=== PATIENT | male | born 1995 | race Caucasian/White ===

== ENCOUNTER 2017-02-06 11:21 | Emergency (ER) | payer OTHER ==
[~2017-02-06] VITALS: Ht 177.8 cm; Wt 75.0 kg
[~2017-02-06 11:21] MED LIST: NOCURR
[2017-02-06] MEDS ORDERED: HYDROCODONE/ACETAMINOPHEN 5-325 MG TABLET PO ONE (13:15)
[2017-02-06] MEDS ORDERED: LIDOCAINE HCL BUFFERED 1% W/EPI 1:100,000 20 ML VIAL INJ ONE (13:15)
[2017-02-06] MEDS ORDERED: ONDANSETRON HCL 4 MG TABLET PO ONE (13:15)
[2017-02-06] MEDS ORDERED: POVIDONE-IODINE 10% 120 ML SOLUTION TP ONE (14:00)
[2017-02-06 14:55] VITALS: BP 127/71
== END 2017-02-06 14:59 | disposition home or self-care (01) ==
LOC: EMS 11:22
DX: L05.01 Pilonidal cyst with abscess (principal)
CPT/HCPCS: 10080; 99284; J3490; Q0162

== ENCOUNTER 2017-02-09 09:31 | Emergency (ER) | payer OTHER ==
[~2017-02-09] VITALS: Ht 177.8 cm; Wt 75.0 kg
[2017-02-09 11:14] VITALS: BP 125/89
== END 2017-02-09 11:14 | disposition home or self-care (01) ==
LOC: EMS 09:32
DX: Z48.00 Encounter for change or removal of nonsurgical wound dressing (principal); F17.210 Nicotine dependence, cigarettes, uncomplicated
CPT/HCPCS: 99282

== ENCOUNTER 2017-02-12 10:20 | Emergency (ER) | payer OTHER ==
[~2017-02-12] VITALS: Ht 177.8 cm; Wt 75.0 kg
[2017-02-12] MEDS ORDERED: POVIDONE-IODINE 10% 15 ML SOLUTION UD TP ONE (11:30)
[2017-02-12 12:35] VITALS: BP 121/82
[2017-02-12] MEDS ORDERED: BACITRACIN 0.9 GM PACKET OINTMENT TP ONE (12:45)
== END 2017-02-12 13:01 | disposition home or self-care (01) ==
LOC: EMS 10:22
DX: Z48.01 Encounter for change or removal of surgical wound dressing (principal); F17.210 Nicotine dependence, cigarettes, uncomplicated
CPT/HCPCS: 99283

== ENCOUNTER 2017-11-12 14:28 | Emergency (ER) | payer MEDICAID, OTHER ==
[~2017-11-12] VITALS: Ht 180.3 cm; Wt 70.5 kg
[2017-11-12 16:10] VITALS: BP 112/69
== END 2017-11-12 16:45 | disposition home or self-care (01) ==
LOC: EMS 14:29
DX: S00.93XA Contusion of unspecified part of head, initial encounter (principal); F12.10 Cannabis abuse, uncomplicated; F17.210 Nicotine dependence, cigarettes, uncomplicated; F15.10 Other stimulant abuse, uncomplicated; W50.0XXA Accidental hit or strike by another person, initial encounter; Y93.89 Activity, other specified; Y92.89 Other specified places as the place of occurrence of the external cause; Y99.8 Other external cause status
CPT/HCPCS: 70450; 99284

== ENCOUNTER 2017-11-13 20:33 | Emergency (ER) | payer MEDICAID ==
[~2017-11-13] VITALS: Ht 180.3 cm; Wt 72.0 kg
[2017-11-13 20:35] VITALS: BP 124/62
[2017-11-13] MEDS ORDERED: LORazepam 1 MG TABLET PO ONE (21:45)
== END 2017-11-13 22:25 | disposition home or self-care (01) ==
LOC: EMS 20:34
DX: F41.9 Anxiety disorder, unspecified (principal); F12.10 Cannabis abuse, uncomplicated; F15.10 Other stimulant abuse, uncomplicated; F17.210 Nicotine dependence, cigarettes, uncomplicated
CPT/HCPCS: 99284

== ENCOUNTER 2017-12-15 13:07 | Inpatient (IN) | payer MEDICAID ==
[~2017-12-15] VITALS: Ht 170.2 cm; Wt 66.3 kg
[2017-12-15] MEDS ORDERED: LORazepam 2 MG TABLET PO ONE (14:00)
[2017-12-15] MEDS ORDERED: HALOPERIDOL 5 MG TABLET PO ONE (14:00)
[2017-12-15] MEDS ORDERED: DiphenhydrAMINE HCL 50 MG/ML VIAL IM ONE (14:30)
[2017-12-15] MEDS ORDERED: LORazepam 2 MG/ML VIAL IM ONE (14:30)
[2017-12-15] MEDS ORDERED: HALOPERIDOL LACTATE 5 MG/ML VIAL IM ONE (14:30)
[2017-12-15 14:44] LABS: BASOPHILS % (AUTO) 0.8 % (0.0-2.0); EOSINOPHILS % (AUTO) 2.9 % (1.0-6.0); HEMATOCRIT 50.1 % (41-53); HEMOGLOBIN 17.1 g/dL (13.5-17.5); LYMPHOCYTES # (AUTO) 1.7 K/uL (1.0-4.8); LYMPHOCYTES % (AUTO) 18.4 % (22.0-44.0); MEAN CORPUSCULAR HEMOGLOBIN 31.5 pg (26.0-34.0); MEAN CORPUSCULAR HGB CONC 34.2 G/dL (31.0-37.0); MEAN CORPUSCULAR VOLUME 92 fL (80-100); MONOCYTES # (AUTO) 0.7 K/uL (0.1-1.0); MONOCYTES % (AUTO) 7.5 % (2.0-9.0); NEUTROPHILS # (AUTO) 6.5 K/uL (1.8-7.7); NEUTROPHILS % (AUTO) 70.4 % (40.0-70.0); PLATELET COUNT (AUTO) 264 K/uL (150-450); RED BLOOD CELL COUNT(AUTO) 5.45 MIL/uL (4.50-5.90); RED CELL DISTRIBUTION WIDTH 12.9 % (11.5-14.5)
[2017-12-15 14:51] LABS: AMPHET/METH SCREEN,URINE POSITIVE (NEGATIVE); BARBITURATE SCREEN, URINE NEGATIVE (NEGATIVE); BENZODIAZEPINES SCREEN,URINE NEGATIVE (NEGATIVE); CANNABINOID SCREEN,URINE POSITIVE (NEGATIVE); COCAINE SCREEN,URINE NEGATIVE (NEGATIVE); METHADONE SCREEN, URINE NEGATIVE (NEGATIVE); OPIATE SCREEN,URINE NEGATIVE (NEGATIVE)
[2017-12-15 15:04] LABS: PHENCYCLIDINE SCREEN,URINE NEGATIVE (NEGATIVE)
[2017-12-15 15:08] LABS: ANION GAP 9 mmol/L (8-16); CALCIUM, TOTAL 8.9 mg/dL (8.8-10.5); CARBON DIOXIDE 27 mmol/L (22-29); CHLORIDE 103 mmol/L (98-107); GLOMERULAR FILTR. RATE CALC > 60 mL/min (>60); GLUCOSE,RANDOM 69 mg/dL (70-110); POTASSIUM 3.6 mmol/L (3.5-5.1); SODIUM SERUM 139 mmol/L (136-145); UREA NITROGEN, BLOOD 10 mg/dL (7-18)
[2017-12-15 15:15] LABS: ALANINE AMINOTRANSFERASE 34 U/L (12-78); ALBUMIN 4.1 g/dL (3.4-5.0); ALKALINE PHOSPHATASE 89 U/L (46-116); ASPARTATE AMINOTRANSFERASE 30 U/L (15-37); BILIRUBIN,TOTAL 0.4 mg/dL (0.1-1.0); TOTAL PROTEIN, SERUM 7.3 g/dL (6.4-8.2)
[2017-12-15 15:29] LABS: CHOL/HDL RATIO 2.1 (4.2-7.3); CHOLESTEROL 124 mg/dL (131-200); HDL CHOLESTEROL 60 mg/dL (40-60); LDL CHOL (CALC.) 55 mg/dL (0-130); TRIGLYCERIDES 43 mg/dL (15-150)
[2017-12-16] MEDS: LORazepam 2 MG TABLET PO PRN (19:00)
[2017-12-16] MEDS: HALOPERIDOL 5 MG TABLET PO PRN (19:00)
[2017-12-17 08:05] VITALS: BP 132/76
[2017-12-17 16:39] VITALS: BP 115/68
[2017-12-17] MEDS: LORazepam 2 MG TABLET PO PRN (16:41)
[2017-12-17] MEDS: HALOPERIDOL 5 MG TABLET PO PRN (16:41)
[2017-12-17] MEDS ORDERED: OLANZapine 5 MG TABLET PO SCH (21:00)
[2017-12-18 08:24] VITALS: BP 112/57
[2017-12-18] MEDS: OLANZapine 5 MG TABLET PO SCH ×2 (11:49→20:20)
[2017-12-18] MEDS: FLUoxetine HCL 20 MG CAPSULE PO SCH (11:50)
[2017-12-18 17:02] VITALS: BP 103/65
[2017-12-18] MEDS: LORazepam 2 MG TABLET PO PRN (19:59)
[2017-12-19] MEDS: FLUoxetine HCL 20 MG CAPSULE PO SCH (09:11)
[2017-12-19] MEDS: OLANZapine 5 MG TABLET PO SCH ×2 (09:12→20:04)
[2017-12-19 10:08] VITALS: BP 102/65
[2017-12-19 16:42] VITALS: BP 112/59
[2017-12-19] MEDS: LORazepam 2 MG TABLET PO PRN (17:55)
[2017-12-20] MEDS: OLANZapine 5 MG TABLET PO SCH ×2 (09:15→20:09)
[2017-12-20] MEDS: FLUoxetine HCL 20 MG CAPSULE PO SCH (09:15)
[2017-12-20 10:50] VITALS: BP 123/64
[2017-12-20] MEDS: LORazepam 2 MG TABLET PO PRN (19:12)
[2017-12-20 19:19] VITALS: BP 101/69
[2017-12-20] MEDS: ZOLPIDEM TARTRATE 10 MG TABLET PO PRN (20:56)
[2017-12-21 03:20] VITALS: BP 120/71
[2017-12-21] MEDS: OLANZapine 5 MG TABLET PO SCH ×2 (08:23→20:45)
[2017-12-21] MEDS: FLUoxetine HCL 20 MG CAPSULE PO SCH (08:23)
[2017-12-21 08:34] VITALS: BP 122/69
[2017-12-21] MEDS: LORazepam 2 MG TABLET PO PRN ×2 (09:18→16:56)
[2017-12-21 20:11] VITALS: BP 118/73
[2017-12-21] MEDS: ZOLPIDEM TARTRATE 10 MG TABLET PO PRN (22:31)
[2017-12-22 02:36] VITALS: BP 112/76
[2017-12-22] MEDS: LORazepam 2 MG TABLET PO PRN ×2 (02:40→08:08)
[2017-12-22 08:00] VITALS: BP 130/85
[2017-12-22] MEDS: HALOPERIDOL 5 MG TABLET PO PRN (08:07)
[2017-12-22] MEDS: OLANZapine 5 MG TABLET PO SCH (08:08)
[2017-12-22] MEDS: FLUoxetine HCL 20 MG CAPSULE PO SCH (08:08)
[2017-12-22] MEDS ORDERED: FLUO-191 PO (13:08)
[2017-12-22] MEDS ORDERED: OLAN5TAB2 PO (13:09)
== END 2017-12-22 13:40 | disposition home or self-care (01) | DRG 751 ==
LOC: EMS 13:07 → UNDOADMIN 15:25 → 3EC 15:25 → 3EI 12-18 14:45
PROVIDERS: ADMIT Psychiatry & Neurology Child & Adolescent Psychiatry; ATTEND Psychiatry & Neurology Child & Adolescent Psychiatry
DX: F29 Unspecified psychosis not due to a substance or known physiological condition (principal); R45.851 Suicidal ideations; F20.9 Schizophrenia, unspecified; E16.2 Hypoglycemia, unspecified; F15.10 Other stimulant abuse, uncomplicated; F94.0 Selective mutism; F17.210 Nicotine dependence, cigarettes, uncomplicated; F12.10 Cannabis abuse, uncomplicated; Z79.899 Other long term (current) drug therapy; Z87.828 Personal history of other (healed) physical injury and trauma
CPT/HCPCS: 96372; 99285; G0480; J1200; J1630; J2060

== ENCOUNTER 2018-06-22 23:32 | Emergency (ER) | payer SELFPAY ==
[~2018-06-22] VITALS: Ht 180.3 cm; Wt 72.7 kg
[~2018-06-22 23:32] MED LIST changes: +FLUO-191 PO; -NOCURR; +OLAN5TAB2 PO
[2018-06-23] MEDS ORDERED: PERTUSS(ACELL),DIPH,TET VAC/PF 0.5 ML VIAL IM ONE (02:00)
[2018-06-23] MEDS ORDERED: BACITRACIN 0.9 GM PACKET OINTMENT TP ONE (02:00)
[2018-06-23 02:26] VITALS: BP 122/68
== END 2018-06-23 02:52 | disposition home or self-care (01) ==
LOC: EMS 23:32
DX: S61.411A Laceration without foreign body of right hand, initial encounter (principal); R46.89 Other symptoms and signs involving appearance and behavior; R45.4 Irritability and anger; F12.90 Cannabis use, unspecified, uncomplicated; F15.90 Other stimulant use, unspecified, uncomplicated; Z98.890 Other specified postprocedural states; Z79.899 Other long term (current) drug therapy; X99.9XXA Assault by unspecified sharp object, initial encounter; Y93.89 Activity, other specified; Y92.89 Other specified places as the place of occurrence of the external cause; Y99.8 Other external cause status
CPT/HCPCS: 90471; 90715

== ENCOUNTER 2018-08-14 20:12 | Emergency (ER) | payer SELFPAY ==
[~2018-08-14] VITALS: Ht 180.3 cm; Wt 72.7 kg
[2018-08-14 20:13] VITALS: BP 124/80
== END 2018-08-14 21:00 | disposition left against medical advice (07) ==
LOC: EMS 20:13
DX: F22 Delusional disorders (principal); Z53.21 Procedure and treatment not carried out due to patient leaving prior to being seen by health care provider

== ENCOUNTER 2018-08-15 22:36 | Emergency (ER) | payer SELFPAY | END 2018-08-15 23:56 | disposition left against medical advice (07) | LOC: EMS 22:37 | DX: Z00.8 Encounter for other general examination (principal); Z53.21 Procedure and treatment not carried out due to patient leaving prior to being seen by health care provider ==

== ENCOUNTER 2018-09-09 06:02 | Inpatient (IN) | payer MEDICAID ==
[~2018-09-09] VITALS: Ht 180.3 cm; Wt 68.5 kg
[2018-09-09 06:20] LABS: BASOPHILS % (AUTO) 0.5 % (0.0-2.0); EOSINOPHILS % (AUTO) 2.7 % (1.0-6.0); HEMATOCRIT 43.9 % (41-53); LYMPHOCYTES # (AUTO) 1.1 K/uL (1.0-4.8); LYMPHOCYTES % (AUTO) 14.7 % (22.0-44.0); MEAN CORPUSCULAR HEMOGLOBIN 30.9 pg (26.0-34.0); MEAN CORPUSCULAR HGB CONC 34.2 G/dL (31.0-37.0); MEAN CORPUSCULAR VOLUME 90 fL (80-100); MONOCYTES # (AUTO) 0.7 K/uL (0.1-1.0); MONOCYTES % (AUTO) 9.1 % (2.0-9.0); NEUTROPHILS # (AUTO) 5.6 K/uL (1.8-7.7); PLATELET COUNT (AUTO) 222 K/uL (150-450); RED BLOOD CELL COUNT(AUTO) 4.87 MIL/uL (4.50-5.90)
[2018-09-09 06:28] LABS: ANION GAP 9 mmol/L (8-16); CALCIUM, TOTAL 8.8 mg/dL (8.8-10.5); CARBON DIOXIDE 27 mmol/L (22-29); CHLORIDE 104 mmol/L (98-107); CREATININE 0.88 mg/dL (0.60-1.30); GLOMERULAR FILTR. RATE CALC > 60 mL/min (>60); GLUCOSE,RANDOM 85 mg/dL (70-110); POTASSIUM 3.6 mmol/L (3.5-5.1); SODIUM SERUM 140 mmol/L (136-145); UREA NITROGEN, BLOOD 13 mg/dL (7-18)
[2018-09-09 06:34] LABS: ALANINE AMINOTRANSFERASE 23 U/L (12-78); ALBUMIN 4.1 g/dL (3.4-5.0); ALKALINE PHOSPHATASE 67 U/L (46-116); ASPARTATE AMINOTRANSFERASE 26 U/L (15-37); BILIRUBIN,TOTAL 1.1 mg/dL (0.1-1.0); TOTAL PROTEIN, SERUM 7.1 g/dL (6.4-8.2)
[2018-09-09 07:07] LABS: AMPHET/METH SCREEN,URINE POSITIVE (NEGATIVE); BARBITURATE SCREEN, URINE NEGATIVE (NEGATIVE); BENZODIAZEPINES SCREEN,URINE NEGATIVE (NEGATIVE); CANNABINOID SCREEN,URINE POSITIVE (NEGATIVE); COCAINE SCREEN,URINE NEGATIVE (NEGATIVE); METHADONE SCREEN, URINE NEGATIVE (NEGATIVE); OPIATE SCREEN,URINE NEGATIVE (NEGATIVE); PHENCYCLIDINE SCREEN,URINE NEGATIVE (NEGATIVE)
[2018-09-09] MEDS ORDERED: LIDOCAINE 1%/EPI 1:200,000/PF 10 ML VIAL INJ ONE (07:30)
[2018-09-09] MEDS ORDERED: LORazepam 2 MG TABLET PO PRN (08:30)
[2018-09-09] MEDS ORDERED: ZOLPIDEM TARTRATE 10 MG TABLET PO PRN (08:30)
[2018-09-09] MEDS ORDERED: HALOPERIDOL 5 MG TABLET PO PRN (08:30)
[2018-09-09] MEDS ORDERED: DiphenhydrAMINE HCL 50 MG CAPSULE PO ONE (10:30)
[2018-09-09] MEDS ORDERED: LORazepam 2 MG TABLET PO ONE (10:30)
[2018-09-09] MEDS ORDERED: HALOPERIDOL 5 MG TABLET PO ONE (10:30)
[2018-09-09 12:33] VITALS: BP 100/62
[2018-09-09 16:19] VITALS: BP 100/60
[2018-09-09] MEDS: OLANZapine 10 MG TABLET PO SCH (17:04)
[2018-09-10 06:21] VITALS: BP 106/68
[2018-09-10 08:15] VITALS: BP 100/63
[2018-09-10] MEDS: OLANZapine 10 MG TABLET PO SCH ×2 (08:41→16:30)
[2018-09-10] MEDS: FLUoxetine HCL 20 MG CAPSULE PO SCH (08:41)
[2018-09-10 16:11] VITALS: BP 116/70
[2018-09-11 00:46] VITALS: BP 103/62
[2018-09-11 08:30] VITALS: BP 106/66
[2018-09-11] MEDS: FLUoxetine HCL 20 MG CAPSULE PO SCH (09:04)
[2018-09-11] MEDS: OLANZapine 10 MG TABLET PO SCH ×2 (09:04→16:28)
[2018-09-11 09:07] LABS: HEMOGLOBIN A1C 5.3 % (4.5-6.2)
[2018-09-11 09:50] LABS: CHOL/HDL RATIO 2.7 (4.2-7.3); FREE T4 (FREE THYROXINE) 0.85 ng/dL (0.76-1.46); THYROID STIMULATING HORMONE 0.82 uIU/mL (0.36-3.74)
[2018-09-11 16:24] VITALS: BP 116/67
[2018-09-12 00:46] VITALS: BP 108/62
[2018-09-12] MEDS: FLUoxetine HCL 20 MG CAPSULE PO SCH (09:35)
[2018-09-12] MEDS: OLANZapine 10 MG TABLET PO SCH ×2 (09:35→16:31)
[2018-09-12 09:41] VITALS: BP 119/61
[2018-09-12 16:16] VITALS: BP 122/68
[2018-09-13 00:50] VITALS: BP 109/70
[2018-09-13] MEDS: OLANZapine 10 MG TABLET PO SCH (08:24)
[2018-09-13] MEDS: FLUoxetine HCL 20 MG CAPSULE PO SCH (08:24)
[2018-09-13 08:32] VITALS: BP 110/61
[2018-09-13] MEDS ORDERED: FLUO-191 PO (11:55)
[2018-09-13] MEDS ORDERED: OLAN10TA3 PO ×2 (11:55→12:03)
== END 2018-09-13 12:50 | disposition home or self-care (01) | DRG 750 ==
LOC: EMS 06:03 → B2S 09:25
PROVIDERS: ADMIT Psychiatry & Neurology Psychiatry; ATTEND Psychiatry & Neurology Psychiatry
DX: F25.0 Schizoaffective disorder, bipolar type (principal); Z91.14 Patient's other noncompliance with medication regimen; F12.90 Cannabis use, unspecified, uncomplicated; F15.10 Other stimulant abuse, uncomplicated; S51.811A Laceration without foreign body of right forearm, initial encounter
CPT/HCPCS: 12002; 83036; 84439; 84443; G0480; J3490

== ENCOUNTER 2018-09-19 11:58 | Emergency (ER) | payer MEDICAID ==
[~2018-09-19] VITALS: Ht 180.3 cm; Wt 72.7 kg
[~2018-09-19 11:58] MED LIST changes: +OLAN10TA3 PO; -OLAN5TAB2 PO
[2018-09-19 12:10] VITALS: BP 115/70
== END 2018-09-19 13:11 | disposition home or self-care (01) ==
LOC: EMS 11:59
DX: S51.811D Laceration without foreign body of right forearm, subsequent encounter (principal); F12.90 Cannabis use, unspecified, uncomplicated; F19.90 Other psychoactive substance use, unspecified, uncomplicated; X58.XXXD Exposure to other specified factors, subsequent encounter

== ENCOUNTER 2019-07-10 12:24 | Emergency (ER) | payer MEDICAID, OTHER ==
[~2019-07-10] VITALS: Ht 180.3 cm; Wt 77.3 kg
[2019-07-10 16:00] VITALS: BP 110/64
== END 2019-07-10 16:01 | disposition home or self-care (01) ==
LOC: EMS 12:26
DX: H61.21 Impacted cerumen, right ear (principal); F12.90 Cannabis use, unspecified, uncomplicated; F19.90 Other psychoactive substance use, unspecified, uncomplicated
CPT/HCPCS: 69200

== ENCOUNTER 2019-07-20 11:39 | Emergency (ER) | payer MEDICAID ==
[~2019-07-20] VITALS: Ht 180.3 cm; Wt 73.0 kg
[2019-07-20 12:44] LABS: BASOPHILS % (AUTO) 0.8 % (0.0-2.0); EOSINOPHILS % (AUTO) 2.4 % (1.0-6.0); HEMATOCRIT 48.4 % (41-53); HEMOGLOBIN 16.5 g/dL (13.5-17.5); LYMPHOCYTES # (AUTO) 1.4 K/uL (1.0-4.8); LYMPHOCYTES % (AUTO) 18.9 % (22.0-44.0); MEAN CORPUSCULAR HEMOGLOBIN 31.1 pg (26.0-34.0); MEAN CORPUSCULAR HGB CONC 34.1 G/dL (31.0-37.0); MEAN CORPUSCULAR VOLUME 91 fL (80-100); MONOCYTES # (AUTO) 0.8 K/uL (0.1-1.0); MONOCYTES % (AUTO) 10.1 % (2.0-9.0); NEUTROPHILS # (AUTO) 5.2 K/uL (1.8-7.7); NEUTROPHILS % (AUTO) 67.8 % (40.0-70.0); PLATELET COUNT (AUTO) 258 K/uL (150-450); RED CELL DISTRIBUTION WIDTH 13.1 % (11.5-14.5)
[2019-07-20] MEDS ORDERED: FAMOTIDINE 10 MG/ML 2 ML VIAL IVP ONE (12:45)
[2019-07-20] MEDS ORDERED: PB/HYOSCY/ATR/SCOP/LIDO/MAALOX 55 ML BOTTLE PO ONE (12:45)
[2019-07-20] MEDS ORDERED: SODIUM CHLORIDE 0.9% 1,000 ML IV ONE (12:45)
[2019-07-20 12:56] LABS: ANION GAP 9 mmol/L (8-16); CALCIUM, TOTAL 8.7 mg/dL (8.8-10.5); CARBON DIOXIDE 29 mmol/L (22-29); CHLORIDE 103 mmol/L (98-107); CREATININE 0.92 mg/dL (0.60-1.30); GLOMERULAR FILTR. RATE CALC > 60 mL/min (>60); GLUCOSE,RANDOM 83 mg/dL (70-110); POTASSIUM 4.2 mmol/L (3.5-5.1); SODIUM SERUM 141 mmol/L (136-145); UREA NITROGEN, BLOOD 12 mg/dL (7-18)
[2019-07-20 12:58] LABS: ALANINE AMINOTRANSFERASE 28 U/L (12-78); ALBUMIN 4.3 g/dL (3.4-5.0); ALKALINE PHOSPHATASE 77 U/L (46-116); ASPARTATE AMINOTRANSFERASE 21 U/L (15-37); BILIRUBIN,TOTAL 1.2 mg/dL (0.1-1.0); LIPASE 119 U/L (73-393); TOTAL PROTEIN, SERUM 7.4 g/dL (6.4-8.2)
[2019-07-20 13:32] VITALS: BP 137/77
== END 2019-07-20 14:03 | disposition home or self-care (01) ==
LOC: EMS 11:42
DX: R19.7 Diarrhea, unspecified (principal); R10.12 Left upper quadrant pain; F12.90 Cannabis use, unspecified, uncomplicated; F15.90 Other stimulant use, unspecified, uncomplicated
CPT/HCPCS: 36415; 80053; 83690; 85025; 96361; 96374; 99283; J3490; J7030

== ENCOUNTER 2019-07-30 07:32 | Inpatient (IN) | payer MEDICAID ==
[~2019-07-30] VITALS: Ht 175.3 cm; Wt 72.3 kg
[2019-07-30 07:51] LABS: EOSINOPHILS % (AUTO) 2.6 % (1.0-6.0); HEMATOCRIT 46.1 % (41-53); HEMOGLOBIN 15.9 g/dL (13.5-17.5); LYMPHOCYTES # (AUTO) 1.2 K/uL (1.0-4.8); LYMPHOCYTES % (AUTO) 17.4 % (22.0-44.0); MEAN CORPUSCULAR HEMOGLOBIN 31.8 pg (26.0-34.0); MEAN CORPUSCULAR HGB CONC 34.6 G/dL (31.0-37.0); MEAN CORPUSCULAR VOLUME 92 fL (80-100); MONOCYTES # (AUTO) 0.7 K/uL (0.1-1.0); MONOCYTES % (AUTO) 10.1 % (2.0-9.0); NEUTROPHILS # (AUTO) 4.9 K/uL (1.8-7.7); NEUTROPHILS % (AUTO) 68.9 % (40.0-70.0); PLATELET COUNT (AUTO) 236 K/uL (150-450); RED BLOOD CELL COUNT(AUTO) 5.02 MIL/uL (4.50-5.90)
[2019-07-30 08:02] LABS: ANION GAP 11 mmol/L (8-16); CARBON DIOXIDE 29 mmol/L (22-29); CHLORIDE 104 mmol/L (98-107); CREATININE 1.07 mg/dL (0.60-1.30); GLOMERULAR FILTR. RATE CALC > 60 mL/min (>60); GLUCOSE,RANDOM 90 mg/dL (70-110); POTASSIUM 3.8 mmol/L (3.5-5.1); SODIUM SERUM 144 mmol/L (136-145); UREA NITROGEN, BLOOD 7 mg/dL (7-18)
[2019-07-30 08:08] LABS: ALANINE AMINOTRANSFERASE 22 U/L (12-78); ALBUMIN 4.2 g/dL (3.4-5.0); ALKALINE PHOSPHATASE 72 U/L (46-116); ASPARTATE AMINOTRANSFERASE 20 U/L (15-37); BILIRUBIN,TOTAL 0.8 mg/dL (0.1-1.0); TOTAL PROTEIN, SERUM 7.3 g/dL (6.4-8.2)
[2019-07-30] MEDS ORDERED: ZOLPIDEM TARTRATE 10 MG TABLET PO PRN (09:30)
[2019-07-30] MEDS ORDERED: LORazepam 2 MG TABLET PO PRN (09:30)
[2019-07-30] MEDS ORDERED: HALOPERIDOL 5 MG TABLET PO PRN (09:30)
[2019-07-30 12:44] VITALS: BP 138/98
[2019-07-30] MEDS ORDERED: INFLUENZA VIRUS VACCINE QVS 2019-20 (3YR+)/PF 60 MCG/0.5 ML SYRINGE IM ONE (13:15)
[2019-07-30] MEDS ORDERED: PNEUMOCOCCAL VACCINE POLYVALENT 0.5 ML VIAL [PPSV23] IM ONE (13:15)
[2019-07-30 17:17] VITALS: BP 106/73
[2019-07-31 08:08] LABS: CHOL/HDL RATIO 2.2 (4.2-7.3); FREE T4 (FREE THYROXINE) 0.79 ng/dL (0.76-1.46); THYROID STIMULATING HORMONE 0.74 uIU/mL (0.36-3.74)
[2019-07-31 08:20] VITALS: BP 117/51
[2019-07-31] MEDS: FLUoxetine HCL 20 MG CAPSULE PO SCH (08:55)
[2019-07-31] MEDS: OLANZapine 10 MG TABLET PO SCH ×2 (08:55→20:17)
[2019-07-31 16:12] VITALS: BP 114/78
[2019-07-31] MEDS ORDERED: MAGNESIUM HYDROXIDE SUSPENSION 30 ML UDCUP PO PRN (21:00)
[2019-07-31] MEDS ORDERED: ACETAMINOPHEN 325 MG TABLET PO PRN (21:00)
[2019-07-31] MEDS ORDERED: IBUPROFEN 600 MG TABLET PO PRN (21:00)
[2019-07-31] MEDS ORDERED: BENZOCAINE/MENTHOL LOZENGE MM PRN (21:00)
[2019-07-31] MEDS ORDERED: PETROLATUM,WHITE 28 GM JELLY TP PRN (21:00)
[2019-07-31] MEDS ORDERED: CloNIDine HCL 0.1 MG TABLET PO PRN (21:00)
[2019-07-31] MEDS ORDERED: LOPERAMIDE HCL 2 MG CAPSULE PO PRN (21:00)
[2019-07-31] MEDS ORDERED: OMEPRAZOLE 20 MG CAPSULE PO PRN (21:00)
[2019-07-31] MEDS ORDERED: DOCUSATE SODIUM 100 MG CAPSULE PO PRN (21:00)
[2019-07-31] MEDS ORDERED: MAG HYDROX/AL HYDROX/SIMETH ES 30 ML SUSPENSION UDCUP PO PRN (21:00)
[2019-07-31] MEDS ORDERED: BACITRACIN 28.4 GM OINTMENT TP PRN (21:00)
[2019-07-31] MEDS ORDERED: ALBUTEROL SULFATE HFA 90 MCG/PUFF 8 GM INHALER IH PRN (21:00)
[2019-07-31] MEDS ORDERED: ONDANSETRON HCL 4 MG TABLET PO PRN (21:00)
[2019-08-01] MEDS: FLUoxetine HCL 20 MG CAPSULE PO SCH (08:27)
[2019-08-01] MEDS: OLANZapine 10 MG TABLET PO SCH ×2 (08:27→20:25)
[2019-08-01 08:30] VITALS: BP 101/67
[2019-08-01 18:44] VITALS: BP 109/65
[2019-08-02 09:17] VITALS: BP 127/62
[2019-08-02] MEDS: FLUoxetine HCL 20 MG CAPSULE PO SCH (09:28)
[2019-08-02] MEDS: OLANZapine 10 MG TABLET PO SCH ×2 (09:28→21:42)
[2019-08-02 17:00] VITALS: BP 115/77
[2019-08-03] MEDS: OLANZapine 10 MG TABLET PO SCH ×2 (09:10→20:50)
[2019-08-03] MEDS: FLUoxetine HCL 20 MG CAPSULE PO SCH (09:10)
[2019-08-03 09:45] VITALS: BP 127/65
[2019-08-03 17:55] VITALS: BP 104/72
[2019-08-04 09:47] VITALS: BP 113/74
[2019-08-04] MEDS: FLUoxetine HCL 20 MG CAPSULE PO SCH (09:56)
[2019-08-04] MEDS: OLANZapine 10 MG TABLET PO SCH ×2 (09:56→21:16)
[2019-08-04 16:00] VITALS: BP 109/67
[2019-08-05] MEDS: FLUoxetine HCL 20 MG CAPSULE PO SCH (09:03)
[2019-08-05] MEDS: OLANZapine 10 MG TABLET PO SCH (09:03)
[2019-08-05 10:40] VITALS: BP 110/67
[2019-08-05] MEDS ORDERED: OLAN10TA20 PO (12:58)
[2019-08-05] MEDS ORDERED: FLUO-191 PO (12:58)
== END 2019-08-05 15:15 | disposition home or self-care (01) | DRG 885 ==
LOC: EMS 07:33 → 3EC 11:17
DX: F25.0 Schizoaffective disorder, bipolar type (principal); F41.9 Anxiety disorder, unspecified; G47.00 Insomnia, unspecified; F12.90 Cannabis use, unspecified, uncomplicated; K59.00 Constipation, unspecified; F17.200 Nicotine dependence, unspecified, uncomplicated; L05.91 Pilonidal cyst without abscess; Z79.899 Other long term (current) drug therapy
CPT/HCPCS: 84439; 84443; 87081; G0480

== ENCOUNTER 2019-08-14 12:38 | Emergency (ER) | payer MEDICAID ==
[~2019-08-14] VITALS: Ht 180.3 cm; Wt 72.7 kg
[~2019-08-14 12:38] MED LIST changes: +OLAN10TA20 PO; -OLAN10TA3 PO
[2019-08-14 12:47] VITALS: BP 144/88
== END 2019-08-14 12:52 | disposition left against medical advice (07) ==
LOC: EMS 12:40
DX: Z53.21 Procedure and treatment not carried out due to patient leaving prior to being seen by health care provider (principal)

== ENCOUNTER 2019-10-26 02:04 | Emergency (ER) | payer MEDICAID ==
[~2019-10-26] VITALS: Ht 180.3 cm; Wt 75.0 kg
[2019-10-26] MEDS ORDERED: LORazepam 1 MG TABLET PO ONE (03:30)
[2019-10-26] MEDS ORDERED: OLANZapine 5 MG TABLET PO ONE (03:30)
[2019-10-26 04:19] LABS: BASOPHILS % (AUTO) 0.8 % (0.0-2.0); EOSINOPHILS % (AUTO) 1.9 % (1.0-6.0); HEMATOCRIT 44.5 % (41-53); HEMOGLOBIN 14.6 g/dL (13.5-17.5); LYMPHOCYTES # (AUTO) 0.8 K/uL (1.0-4.8); LYMPHOCYTES % (AUTO) 9.2 % (22.0-44.0); MEAN CORPUSCULAR HEMOGLOBIN 29.7 pg (26.0-34.0); MEAN CORPUSCULAR HGB CONC 32.9 G/dL (31.0-37.0); MEAN CORPUSCULAR VOLUME 90 fL (80-100); MONOCYTES # (AUTO) 1.3 K/uL (0.1-1.0); MONOCYTES % (AUTO) 13.9 % (2.0-9.0); NEUTROPHILS # (AUTO) 6.8 K/uL (1.8-7.7); NEUTROPHILS % (AUTO) 74.2 % (40.0-70.0); PLATELET COUNT (AUTO) 213 K/uL (150-450); RED BLOOD CELL COUNT(AUTO) 4.92 MIL/uL (4.50-5.90); RED CELL DISTRIBUTION WIDTH 13.5 % (11.5-14.5)
[2019-10-26 04:29] LABS: ANION GAP 8 mmol/L (8-16); CALCIUM, TOTAL 9.6 mg/dL (8.8-10.5); CARBON DIOXIDE 27 mmol/L (22-29); CHLORIDE 104 mmol/L (98-107); CREATININE 0.99 mg/dL (0.60-1.30); GLOMERULAR FILTR. RATE CALC > 60 mL/min (>60); GLUCOSE,RANDOM 122 mg/dL (70-110); POTASSIUM 3.9 mmol/L (3.5-5.1); SODIUM SERUM 139 mmol/L (136-145); UREA NITROGEN, BLOOD 14 mg/dL (7-18)
[2019-10-26 04:36] LABS: ALANINE AMINOTRANSFERASE 22 U/L (12-78); ALBUMIN 4.1 g/dL (3.4-5.0); ALKALINE PHOSPHATASE 71 U/L (46-116); ASPARTATE AMINOTRANSFERASE 21 U/L (15-37); BILIRUBIN,TOTAL 0.2 mg/dL (0.1-1.0); TOTAL PROTEIN, SERUM 7.2 g/dL (6.4-8.2)
[2019-10-26 08:15] VITALS: BP 121/69
== END 2019-10-26 08:17 | disposition home or self-care (01) ==
LOC: EMS 02:05
DX: F32.9 Major depressive disorder, single episode, unspecified (principal); F15.10 Other stimulant abuse, uncomplicated; F25.9 Schizoaffective disorder, unspecified; F12.90 Cannabis use, unspecified, uncomplicated
CPT/HCPCS: 36415; 80053; 85025; 99284; G0480

== ENCOUNTER 2019-10-27 13:48 | Emergency (ER) | payer MEDICAID ==
[~2019-10-27] VITALS: Ht 180.3 cm; Wt 75.0 kg
[2019-10-27] MEDS ORDERED: OLANZapine 5 MG TABLET PO ONE (18:00)
[2019-10-27 18:45] VITALS: BP 124/73
== END 2019-10-27 18:46 | disposition home or self-care (01) ==
LOC: EMS 13:50
DX: F20.9 Schizophrenia, unspecified (principal); F41.9 Anxiety disorder, unspecified; F32.9 Major depressive disorder, single episode, unspecified; F19.90 Other psychoactive substance use, unspecified, uncomplicated; F12.90 Cannabis use, unspecified, uncomplicated

== ENCOUNTER 2020-07-18 20:01 | Emergency (ER) | payer MEDICAID ==
[~2020-07-18] VITALS: Ht 180.3 cm; Wt 72.7 kg
[2020-07-18 21:24] LABS: BASOPHILS % (AUTO) 0.4 % (0.0-2.0); EOSINOPHILS % (AUTO) 1.1 % (1.0-6.0); HEMATOCRIT 48.8 % (41-53); HEMOGLOBIN 16.1 g/dL (13.5-17.5); LYMPHOCYTES # (AUTO) 1.7 K/uL (1.0-4.8); LYMPHOCYTES % (AUTO) 18.3 % (22.0-44.0); MEAN CORPUSCULAR HEMOGLOBIN 30.7 pg (26.0-34.0); MEAN CORPUSCULAR VOLUME 93 fL (80-100); MONOCYTES # (AUTO) 0.8 K/uL (0.1-1.0); MONOCYTES % (AUTO) 8.1 % (2.0-9.0); NEUTROPHILS # (AUTO) 6.7 K/uL (1.8-7.7); NEUTROPHILS % (AUTO) 72.1 % (40.0-70.0); PLATELET COUNT (AUTO) 247 K/uL (150-450); RED BLOOD CELL COUNT(AUTO) 5.25 MIL/uL (4.50-5.90); RED CELL DISTRIBUTION WIDTH 13.8 % (11.5-14.5)
[2020-07-18 21:36] LABS: ANION GAP 9 mmol/L (8-16); CALCIUM, TOTAL 9.3 mg/dL (8.8-10.5); CARBON DIOXIDE 32 mmol/L (22-29); CHLORIDE 103 mmol/L (98-107); CREATININE 1.06 mg/dL (0.60-1.30); GLOMERULAR FILTR. RATE CALC > 60 mL/min (>60); GLUCOSE,RANDOM 104 mg/dL (70-110); POTASSIUM 4.3 mmol/L (3.5-5.1); SODIUM SERUM 144 mmol/L (136-145); UREA NITROGEN, BLOOD 11 mg/dL (7-18)
[2020-07-18 21:39] LABS: ALANINE AMINOTRANSFERASE 21 U/L (12-78); ALBUMIN 4.4 g/dL (3.4-5.0); ALKALINE PHOSPHATASE 79 U/L (46-116); ASPARTATE AMINOTRANSFERASE 17 U/L (15-37); BILIRUBIN,TOTAL 0.5 mg/dL (0.1-1.0); TOTAL PROTEIN, SERUM 7.8 g/dL (6.4-8.2)
[2020-07-18 21:44] LABS: AMPHET/METH SCREEN,URINE POSITIVE (NEGATIVE); BARBITURATE SCREEN, URINE NEGATIVE (NEGATIVE); BENZODIAZEPINES SCREEN,URINE NEGATIVE (NEGATIVE); CANNABINOID SCREEN,URINE NEGATIVE (NEGATIVE); COCAINE SCREEN,URINE NEGATIVE (NEGATIVE); METHADONE SCREEN, URINE NEGATIVE (NEGATIVE); OPIATE SCREEN,URINE NEGATIVE (NEGATIVE); PHENCYCLIDINE SCREEN,URINE NEGATIVE (NEGATIVE)
[2020-07-19 00:19] VITALS: BP 131/80
== END 2020-07-19 00:21 | disposition home or self-care (01) ==
LOC: EMS 21:12
DX: F25.0 Schizoaffective disorder, bipolar type (principal); F15.10 Other stimulant abuse, uncomplicated; F12.90 Cannabis use, unspecified, uncomplicated; F41.9 Anxiety disorder, unspecified
CPT/HCPCS: 36415; 80053; 80307; 85025; 99284; G0480

== ENCOUNTER 2020-11-16 16:28 | Emergency (ER) | payer MEDICAID ==
[2020-11-17] MEDS ORDERED: QUET200T PO (11:32)
== END 2020-11-16 17:00 | disposition left against medical advice (07) ==
LOC: EMS 16:28
DX: Z76.0 Encounter for issue of repeat prescription (principal); Z53.21 Procedure and treatment not carried out due to patient leaving prior to being seen by health care provider

== ENCOUNTER 2020-11-17 11:26 | Emergency (ER) | payer MEDICAID ==
[~2020-11-17] VITALS: Ht 154.9 cm; Wt 72.7 kg
[2020-11-17 11:32] VITALS: BP 118/84
[2020-11-17] MEDS ORDERED: QUET200T PO (11:32)
== END 2020-11-17 12:09 | disposition home or self-care (01) ==
LOC: EMS 11:44
DX: Z76.0 Encounter for issue of repeat prescription (principal); F41.9 Anxiety disorder, unspecified; F15.90 Other stimulant use, unspecified, uncomplicated; F12.90 Cannabis use, unspecified, uncomplicated
CPT/HCPCS: 99281; Z7502

== ENCOUNTER 2024-02-14 11:44 | Emergency (ER) | payer MEDICAID, OTHER ==
[~2024-02-14] VITALS: Ht 177.8 cm; Wt 90.0 kg
[~2024-02-14 11:44] MED LIST changes: -FLUO-191 PO; -OLAN10TA20 PO; +QUET200T PO
[2024-02-14 11:53] VITALS: TEMP 98
[2024-02-14] MEDS: BACITRACIN 28 GM OINTMENT TP ONE (13:19)
[2024-02-14 13:22] VITALS: BP 116/64; PULSE 77; RESP 16
== END 2024-02-14 13:32 | disposition home or self-care (01) ==
LOC: EMS 11:44
DX: T22.012A Burn of unspecified degree of left forearm, initial encounter (principal); F41.9 Anxiety disorder, unspecified; F20.9 Schizophrenia, unspecified; F32.A Depression, unspecified; F12.90 Cannabis use, unspecified, uncomplicated; F15.90 Other stimulant use, unspecified, uncomplicated; X58.XXXA Exposure to other specified factors, initial encounter; Y93.89 Activity, other specified; Y92.89 Other specified places as the place of occurrence of the external cause; Y99.8 Other external cause status
CPT/HCPCS: 99282; Z7502; Z7610